=== PATIENT | female | born 1930 | race Caucasian/White ===

== ENCOUNTER → 2016-06-01 | Outpatient (CLI) | payer OTHER ==
[~2016-06-01] MED LIST: ACCUNEB SO1.25 MG/1 INH; ASPIRIN EC81 M1 PO; AZOR 5-20 MG T1 EACH PO; B-50 COMPLEX1 EAC1 PO; BIOTIN10000 MC1 PO; BIOTIN5 M1 PO; BYSTOLIC 5 MG5 M1 PO; BYSTOLIC10 MG PO; CALCIUM 600 +1 EAC9 PO; CALCIUM PO; CHLORTHALIDONE25 MG PO; CIPRO250 M1 PO; COLACE100 MG PO; COUMADIN 4 MG TA4 M1 PO; COZAAR 25 MG TA25 M1 PO; COZAAR 50 MG TA50 M1 PO; COZAAR 50 MG TA50 M2 PO; COZAAR 50 MG TA50 MG PO; DEMADEX20 MG PO; DOXYCYCLINE 10100 MG PO; ENOXAPARIN60 MG/0.1 SUBQ; FOSAMAX 70 MG T70 M1 PO; FOSAMAX 70 MG T70 MG PO; HYDROCHLOROTHIA25 M2 PO; IRON160 M1 PO; ISRADIPINE2.5 MG; ISRADIPINE5 MG PO; JANTOVEN2 MG PO; KLOR-CON 10 ER10 MEQ PO; LASIX 20 MG TAB20 MG PO; LASIX 40 MG TAB40 M1 PO; LEXAPRO 10 MG T10 M1 PO; LOVASTAT40 PO; MAG DELAY64 MG PO; MAGOX 400400 MG PO; MINOCIN50 MG PO; MUCINEX TA600 MG/TA2 PO; NORVASC 5 MG TAB5 MG PO; NORVASC5 MG PO; NOVOLOG100 UNIT/1; OMEGA-31000 MG PO; PAXIL10 MG; PEPCID20 MG PO; PLAVIX 75 MG TA75 M1 PO; POTASSIUM20 PO; PRADAXA150 MG PO; PRADAXA75 MG PO; PREDNISONE 10 M10 M1 PO; SENNA LAXATIVE8.6 MG PO; SUPER-D3+ SOFT1 EACH PO; TUCKS HEMORROID30 GM RECTAL; TUMS; TYLENOL325 MG PO; URSODIOL300 MG PO; VICODIN 5-3001 EACH PO; VICODIN PO; VITAMIN B-150 MG PO; VITAMIN D400 UNI1 PO; ZYRTEC10 MG PO; [UNRECOGNIZED DRUG - OTHER] PO; [UNRECOGNIZED DRUG - OTHER] PO; [UNRECOGNIZED DRUG - OTHER] RECTAL
== END ==
LOC: CAT 12:05
DX: R06.00 Dyspnea, unspecified (principal); J90 Pleural effusion, not elsewhere classified; J43.9 Emphysema, unspecified; R91.1 Solitary pulmonary nodule

== ENCOUNTER 2016-10-06 17:37 | Inpatient (IN) | payer OTHER ==
[~2016-10-06] VITALS: Ht 154.9 cm; Wt 32.2 kg
--- NOTE | ~2016-10-06 | S ---
[facility] [place] [address] SURGICAL PATH RPT PROCEDURE Name: REBEKAH CONWAY Room #: 242-P [facility] IN M.R.#: [id number] Admission: 10/06/16 Date of : 30 Discharge: 10/08/16 Report #: [id number] Path Case #: [id number] PATHOLOGY REPORT COLLECTION DATE: 10/06/2016 RECEIVED DATE: 10/10/2016 SUBMITTING PHYS: Dr. Nathaniel West OTHER PHYS: Dr. Chito Snell SPECIMEN(S) RECEIVED: A.Embolus right femoral artery * * * * * * * * * * * * FINAL DIAGNOSIS: Clotted blood (embolus), "right femoral artery": - Consistent with an embolus with clotted blood and blood elements. PATHOLOGIST: Travon Sanchez M.D. REPORT ELECTRONICALLY SIGNED BY: Travon Sanchez M.D. DATE/TIME: 10/11/2016 12:39 * * * * * * * * * * * * GROSS PATHOLOGY: The specimen is received in formalin labeled "Rebekah Conway, jose carlosus right femoral artery". Received is a moderate amount of red-de blood coagulum admixed with possible vascular tissue measuring 1.8 x 0.8 x 0.3 cm in aggregate dimensions. The specimen is filtered and entirely submitted in cassette A1. (CAA; 10/10/2016) CLINICAL HISTORY: Embolus right femoral artery INITIAL CPT CODE(S): A; 13940 Professional services performed by [facility] at [facility] [address], [place] [address] Technical services performed by [facility] at [address] [place] [id number]. [facility] [address] [place] [address] SURGICAL PATH RPT PROCEDURE Name: REBEKAH CONWAY Room #: 242-P [facility] IN M.R.#: [id number] Admission: 10/06/16 Date of : 30 Discharge: 10/08/16 Report #: [id number] Path Case #: [id number] [address] PHONE: [phone] DIRECTOR: Blaine Lai M.D. * * * END OF REPORT * * *
--- NOTE | ~2016-10-06 | O ---
[facility] [place] [address] OPERATIVE REPORT Name: SHOSHANA CONWAY Room #: 242-P [facility] IN M.R.#: [id number] Admission: 10/06/16 Attend Phys: Chito Arnold MD, Discharge: 10/08/16 Date of : 30 Report #: [id number] THIS REPORT FOR: //name// CC: Quinten Arnold DATE OF SERVICE: 10/06/2016. PREOPERATIVE DIAGNOSIS: Acute arterial ischemia, right lower extremity. POSTOPERATIVE DIAGNOSIS: Acute arterial ischemia, right lower extremity. OPERATION: Right femoral embolectomy and fasciotomy (four compartment). SURGEON: Nathaniel West M.D. BODY FORMER: Dcelan. ANESTHESIA: General. INDICATIONS: The patient is an 85-year-old with acute arterial insufficiency by history this occurred approximately 3 in the morning. We were consulted at approximately 6:30 in the afternoon in the evening. Arteriography by Dr. Obrien showed an embolus in the common femoral artery and then a total occlusion of superficial femoral and beyond. The patient has a history of previous stent placement and at last observation in 2016 superficial femoral artery stents were widely patent. FINDINGS AND TECHNIQUE: After general anesthesia was established, an incision was made in the right groin to expose the common deep and superficial femoral arteries, the femoral arteries were, the common femoral was intensively calcified and was challenged to find a spot to both control inflow and then a separate spot for the arteriotomy. In any event, 5000 units of heparin were given. The arteries were occluded. Transverse arteriotomy was made in common femoral artery and femoral embolectomy was performed, clot was treated from both the external iliac, common femoral systems and from the superficial femoral and beyond, I was able to pass [address] to the hilt and retrieve clot. It is difficult to pass the Haley down the deep femoral artery and so this was exposed separate layer and a separate arteriotomy was made to make sure that there was no clot in the deep femoral and this was widely patent. Both of the arteriotomies were closed with interrupted Prolene. Flow was reestablished. Good hemostasis was ascertained. [facility] [address] [place] [address] OPERATIVE REPORT Name: SHOSHANA CONWAY Room #: 242-P [facility] IN M.R.#: [id number] Admission: 10/06/16 Attend Phys: Chito Arnold MD, Discharge: 10/08/16 Date of : 30 Report #: [id number] We used the Doppler to interrogate the leg and were satisfactory with good distal flow, the calf; however, did seem tense and so therefore four compartment fasciotomy was made by making an incision over the fibula and then entering all of the components doing careful fasciotomy. Muscle in all of the compartments were pink and perfused and there was clearly swelling as to indicate necessity of the fasciotomy. When hemostasis was satisfactory, groin incisions were closed in layers and a Prevena dressing was applied, a moistened saline gauze was placed on the fasciotomy incision and this was wrapped with strong dorsalis pedis pulses palpable at the end of the operation. All counts reported as correct. <ELECTRONICALLY SIGNED> By: Nathaniel West MD 10/24/16 1325 0814 0900 Nathaniel West MD /nt
--- NOTE | ~2016-10-06 | HC ---
[facility] [place] [address] CONSULTATION Name: SHOSHANA CONWAY Theresa Room #: 242-P [facility] IN M.R.#: [id number] Admission: 10/06/16 Attend Phys: Chito Arnold MD, Discharge: 10/08/16 Date of : 30 Report #: [id number] THIS REPORT FOR: //name// CC: Quinten Arnold DATE OF SERVICE: 10/08/2016 CRITICAL CARE ICU RENAL CONSULT REASON FOR CONSULTATION: Acute kidney injury in this patient with multisystem organ failure. HISTORY OF PRESENT ILLNESS: This 85-year-old female has a significant history of diffuse atherosclerotic cardiovascular disease. She presented with acute onset of right calf pain. She was found to have complete occlusion of her right femoral artery and underwent femoral endarterectomy with fasciotomy. She has known longstanding peripheral arterial disease as well as stable coronary artery disease. She has been losing weight progressively and currently weighs approximately 85 pounds. Past medical history is remarkable for previous bilateral superficial femoral artery stents. MEDICATIONS ON ADMISSION: Include Fosamax, biotin, chlorthalidone, gabapentin, lovastatin, Bystolic, Demadex, potassium, Pradaxa. PAST MEDICAL HISTORY: Otherwise remarkable for paroxysmal atrial fibrillation and coronary artery disease. She has known carotid artery disease as well. She has dyslipidemia, hypertension, and COPD. 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 She does not smoke and does not consume alcohol. There is no history of substance abuse. Family history and review of systems are not obtainable at this time. ALLERGIES: Reported to STATINS, MACRODANTIN, SILVADENE, and SULFA. PHYSICAL EXAMINATION: GENERAL: Reveals a chronically ill, debilitated, acutely ill female who is poorly responsive and lethargic. VITAL SIGNS: Blood pressure 110/63, temperature , pulse 108, respirations . SKIN: Warm and dry. Extremities are cool. There is poor distal perfusion of all extremities. The extremities are mottled. HEENT: The head is normocephalic and atraumatic. The sclerae are white. The pharynx is benign. [facility] [address] [place] [address] CONSULTATION Name: SHOSHANA CONWAY Room #: 242-P [facility] IN ..#: [id number] Admission: 10/06/16 Attend Phys: Chito Arnold MD, Discharge: 10/08/16 Date of : 30 Report #: [id number] NECK: Supple. LUNGS: Yañez are grossly clear to percussion and auscultation. CARDIOVASCULAR: Reveals a regular rate and rhythm without rub. ABDOMEN: Soft and nontender. There is a Banuelos catheter in place draining no urine. NEUROLOGIC: Reveals the patient to be lethargic and poorly responsive. LABORATORY STUDIES: Available at this time include sodium 145, potassium 4.6, chloride 108, CO2 10, BUN 47, creatinine 2.1, calcium 7.4. White blood cell count 25,700, hemoglobin 7.6, hematocrit 26.9, platelet count 208,000. A pH 7.12, pCO2 of 21, pO2 165, lactate 13.08. ASSESSMENT: 1. Profound lactic acidosis with multisystem organ failure. The patient is anuric with a rapidly rising serum creatinine. Given her overall debilitated state and acute illness, I would recommend that we support her with aggressive medical intervention, but I do not feel that she is a candidate for dialysis at this time given her multiple comorbidities and advanced age as well as vascular disease. The is not present at this time. I will discuss further with Dr. Arnold. 2. Acute right femoral occlusion, status post endarterectomy. 3. Multisystem organ failure. 4. Leukocytosis. 5. Metabolic acidosis. PLAN: We will proceed with aggressive medical measures to include reformulation of intravenous fluids, transfusion and serial laboratory studies, I and O and daily weights. I will be happy to discuss matters further with the patient's regarding medical management and consideration of dialysis. Please see orders. Critical care time 45 minutes. <ELECTRONICALLY SIGNED> By: Nikhil Stahl MD 10/09/16 0750 1817 0107 Nikhil Stahl MD /nt
--- NOTE | ~2016-10-06 | H ---
[facility] [place] [address] HISTORY AND PHYSICAL Name: SHOSHANA CONWAY Theresa Room #: 242-P [facility] IN M.R.#: [id number] Admission: 10/06/16 Attend Phys: Chito Arnold MD, Discharge: 10/08/16 Date of : 30 Report #: [id number] THIS REPORT FOR: //name// CC: Quinten Arnold DATE OF SERVICE: 10/06/2016 HISTORY OF PRESENT ILLNESS: The patient is an 85-year-old female well known to myself who presents in our office with an acute onset of significant right calf pain. Subsequently, found to have a right femoral artery embolus and subsequently right femoral endarterectomy with fasciotomy. This was performed by Dr. West, longstanding peripheral vascular disease and stable coronary artery disease, failure to thrive. She stopped anticoagulation a couple of weeks prior due to some bleeding issues. With regards to leg she did not have any initial numbness and did have a motor strength still, although was cool, she has had prior bilateral SFA stents. She has had prior angioplasty of the right anterior tibial artery. There was occlusion throughout the distal right external iliac, common femoral and SFA. There were no EKG changes. HOME MEDICATIONS: Fosamax, Biotin, chlorthalidone, gabapentin, lovastatin 40, Bystolic 5, Demadex 5, potassium 10 and Pradaxa, she had been on Pradaxa 75 b.i.d. been stopped. 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 SOCIAL HISTORY: Nondrinker, nonsmoker. She is . 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 FAMILY HISTORY: Negative for premature coronary disease. ALLERGIES: CRESTOR, LIPITOR, MACRODANTIN, SILVADENE, SIMVASTATIN, AND SULFA. REVIEW OF SYSTEMS: Negative except for stated above and intermittent bleeding issues while on the prior Pradaxa, although they did not expound. PHYSICAL EXAMINATION: VITAL SIGNS: Pulse 70s, blood pressure 120/60. HEENT: Eyes reveal xanthelasmas. Pharynx is clear. NECK: Shows preserved upstrokes without JVD or bruits. LUNGS: Prolonged expiratory phase. [facility] [address] [place] [address] HISTORY AND PHYSICAL Name: SHOSHANA CONWAY Room #: 242-P [facility]#: [id number] Admission: 10/06/16 Attend Phys: Chito Arnold MD, Discharge: 10/08/16 Date of : 30 Report #: [id number] CARDIOVASCULAR: Distant heart tones, S1, S2. ABDOMEN: Soft. No HSM or abdominal bruit. EXTREMITIES: Reveal cool right lower extremity. I cannot palpate DP, PT and faintly on the femoral, the left foot is warm, but I also cannot palpate the distal pulses. SKIN: There are some chronic venous insufficiency noted, but no skin breakdown. NEUROLOGIC: Nonfocal. MUSCULOSKELETAL: Generalized arthritic changes. She is in a wheelchair, unable to walk due to the pain. ASSESSMENT: 1. Acute right lower extremity arterial occlusion embolic, suspect embolic event. 2. Longstanding peripheral vascular disease with multiple interventions, see above. 3. Stable coronary artery disease. 4. Chronic obstructive pulmonary disease. 5. Hypertension. 6. Paroxysmal atrial fibrillation. 7. Hypercholesterolemia. 8. Prior mesenteric ischemia with celiac, SMA occlusion, ROSY filling. RECOMMENDATIONS AND PLAN: We will admit for pain and to proceed to angiography with Dr. Obrien and may in fact need embolectomy by Dr. West. This had been discussed with the patient and her and they do elect to proceed, it is certainly a guarded condition here, this lady is elderly second fairly debilitated 72 pounds. <ELECTRONICALLY SIGNED> By: Chito Arnold MD, FACC 10/16/16 1544 0847 0927 Chito Arnold MD, FACC /nt
--- NOTE | ~2016-10-06 | EKG ---
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 : 1930 Requested By: Chito Arnold Order Number: [id number] MD: Jimmy Akbar Measurements Intervals Lindsay Rate: 120 P: WV: QRS: 121 QRSD: 106 T: 115 QT: 356 QTc: 503 Interpretive Statements Atrial fibrillation Ventricular premature complex Low-voltage QRS ST and T wave abnormality, consider ischemia Note previous ECGs available for comparison Electronically Signed On 10-08-2016 14:06:46 CDT by Jimmy Akbar [email or web address] <ELECTRONICALLY SIGNED> By: Jimmy Akbar MD, [facility] 10/08/16 1406 0 Jimmy Akbar MD, [facility] /EPI
--- NOTE | ~2016-10-06 | HC ---
[facility] [place] [address] CONSULTATION Name: SHOSHANA CONWAY Room #: 242-P ADM IN M.R.#: [id number] Admission: 10/06/16 Attend Phys: Chito Arnold MD, Discharge: Date of : 30 Report #: [id number] THIS REPORT FOR: //name// CC: Quinten Arnold DATE OF SERVICE: 10/07/2016 PRIMARY CARE PHYSICIAN: Dr. Quinten Snell. REFERRAL PHYSICIAN: Dr. Flores. REASON FOR REFERRAL: Postop respiratory failure. HISTORY OF PRESENT ILLNESS: The patient is an 85-year-old white female who was admitted yesterday with an acute arterial occlusion involving the right lower extremity. Overnight, she underwent arteriogram and subsequent right femoral artery embolectomy along with fasciotomy. Postoperatively, the patient was left on a ventilator. A pulmonary consultation was requested. Overnight, the patient did fairly well. She has developed a metabolic acidosis. CPAP earlier this morning was adequate and she was eventually extubated. 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 She also has coronary artery disease with PCI in the past, paroxysmal atrial fibrillation, COPD, chronic diastolic and systolic heart failure within the previous echocardiogram from 2014 showing an EF around 50-55%, moderate to severe mitral regurgitation, essential hypertension, pulmonary arterial hypertension. PAST SURGICAL HISTORY: As mentioned above including history of right humerus fracture, right leg fracture, hemorrhoidectomy, bunionectomy, hysterectomy, multiple skin cancer resection. ALLERGIES: MACROBID, PENICILLIN, SULFA, reactions not specified. MEDICATIONS: List are reviewed. FAMILY HISTORY: Remarkable for leukemia in mother who . Father had severe depression. SOCIAL HISTORY: The patient has smoked, but quit in 1983 after smoking more than 30 years, there is no history of alcohol use. 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 She is . [facility] [address] [place] [address] CONSULTATION Name: SHOSHANA CONWAY Room #: 242-P [facility] IN [facility].#: [id number] Admission: 10/06/16 Attend Phys: Chito Arnold MD, Discharge: Date of : 30 Report #: [id number] REVIEW OF SYSTEMS: As mentioned above, otherwise somewhat limited as patient is still drowsy post extubation. PHYSICAL EXAMINATION: VITAL SIGNS: Temperature is 96.8 degrees Fahrenheit, pulse is 73, respiratory rate 16, blood pressure 147/50 mmHg, saturation 98% on FIO2 35%. HEENT: Normocephalic, atraumatic. NECK: Supple, without any lymphadenopathy or thyromegaly. CHEST: Breath sounds are fair without any rales or wheezes. CARDIOVASCULAR: Distant heart sounds. No obvious murmurs or gallop. ABDOMEN: Soft, nontender. EXTREMITIES: Warm to touch involving the right lower extremity. Dressing placed over the right lower extremity. LABORATORY DATA: Portable chest x-ray was unremarkable. ET tube is in appropriate position. Electrolytes unremarkable except for creatinine of 1.3. BUN is 41, CO2 is 17. WBC is 19,300, hemoglobin 7.7. Arterial blood gas from yesterday evening revealed pH 7.30, pCO2 of 30, pO2 185. Albumin 2.6. IMPRESSION: 1. Acute hypoxic respiratory failure, expectant following surgery. The patient underwent a , which was adequate. She is now stable post-extubation. 2. History of chronic obstructive pulmonary disease, severity non-defined, continue bronchodilators. 3. Severe peripheral artery disease, acute right lower extremity femoral artery thrombosis, status post surgery as mentioned above. 4. Acute kidney injury/chronic kidney disease. The patient's creatinine has varied from 1.7-1.0 in the past from last year. 5. Metabolic acidosis due to limb ischemia, currently on bicarbonate drip, metabolic acidosis is improving. 6. Anemia with normal indices. 7. Protein calorie malnutrition, severe with an albumin 2.6. 8. Coronary artery disease. 9. Permanent atrial fibrillation. RECOMMENDATION: The patient is stable post extubation. We will keep saturation 90%. Wean O2. The patient is at risk for developing reperfusion lung injury. We will monitor closely. DVT and GI prophylaxis will be addressed. Chest physiotherapy as tolerated. Follow electrolytes closely along with renal function and metabolic acidosis. [address] [address] CONSULTATION Name: SHOSHANA CONWAY Room #: 242-P [facility] IN M.R.#: [id number] Admission: 10/06/16 Attend Phys: Chito Arnold MD, Discharge: Date of : 30 Report #: [id number] Thank you for this consultation. <ELECTRONICALLY SIGNED> By: Brandan Mcgee MD 10/08/16 1632 1352 56 Brandan Mcgee MD /nt
[2016-10-06 19:07] VITALS: BP 160/81
[2016-10-06 20:21] LABS: HEMATOCRIT 23.3 % (37.0-47.0); HEMOGLOBIN 7.3 gm/dL (12.0-15.0); MCH 28.7 pg (26.0-34.0); MCHC 31.5 g/dL (28.0-37.0); MCV 91.3 fL (80.0-100.0); RBC 2.55 mil/uL (4.20-5.00); RDW 17.2 % (10.5-14.5); WBC 6.7 thou/uL (4.0-11.0)
[2016-10-06 20:34] LABS: ALBUMIN 2.6 g/dL (3.4-5.0); CALCIUM 8.6 mg/dL (8.5-10.1); CREATININE 1.3 mg/dL (0.6-1.0); POTASSIUM 4.3 mmol/L (3.5-5.1); TOTAL BILIRUBIN 0.4 mg/dL (<0.1-1.0)
[2016-10-06 20:38] LABS: APTT 24.9 Seconds (24.5-32.8); INR 1.1; PROTIME 11.9 Seconds (9.3-11.4)
[2016-10-07] VITALS (59 sets, daily range): BP systolic 112–159; BP diastolic 33–108
[2016-10-07 01:07] LABS: ABG SAMPLE TYPE ARTERIAL; BE(vivo) -10.8 mmol/L (-2 to +3); HCO3 14.5 mmol/L (22.0-26.0); LACTATE 2.17 mmol/L (0.5-2.0); O2(CT) 12.1 mL/dL (15.0-23.0); O2Hb 97.7 % (92.0-98.0); PO2 185.5 mmHg (80.0-100.0); sO2 99.2 % (92.0-98.0); tCO2 15.4 mmol/L (24.0-30.0)
[2016-10-07 01:08] LABS: Pressure Support 8 cm H20; STICK SITE L.BRACHIAL; pH 7.302 (7.360-7.450)
[2016-10-07 01:09] LABS: VDS CPAP.RR23.VT380. cc
[2016-10-07 04:55] LABS: HEMATOCRIT 24.5 % (37.0-47.0); HEMOGLOBIN 7.7 gm/dL (12.0-15.0); MCH 28.6 pg (26.0-34.0); MCHC 31.2 g/dL (28.0-37.0); MCV 91.4 fL (80.0-100.0); RBC 2.68 mil/uL (4.20-5.00); WBC 19.3 thou/uL (4.0-11.0)
[2016-10-07 05:03] LABS: CALCIUM 8.2 mg/dL (8.5-10.1); CREATININE 1.3 mg/dL (0.6-1.0); POTASSIUM 4.6 mmol/L (3.5-5.1)
[2016-10-07 05:06] LABS: INR 1.1; PROTIME 11.7 Seconds (9.3-11.4)
[2016-10-07 05:51] LABS: ABG SAMPLE TYPE ARTERIAL; BE(vivo) -4.8 mmol/L (-2 to +3); HCO3 19.6 mmol/L (22.0-26.0); LACTATE 1.87 mmol/L (0.5-2.0); O2(CT) 11.1 mL/dL (15.0-23.0); O2Hb 97.9 % (92.0-98.0); PO2 164.4 mmHg (80.0-100.0); pH 7.391 (7.360-7.450); sO2 99.1 % (92.0-98.0); tCO2 20.6 mmol/L (24.0-30.0)
[2016-10-07 05:52] LABS: STICK SITE L.BRACHIAL; TIDAL VOLUME 350 ml
[2016-10-07 09:48] LABS: ABG SAMPLE TYPE ARTERIAL; BE(vivo) -6.1 mmol/L (-2 to +3); HCO3 18.5 mmol/L (22.0-26.0); O2(CT) 10.9 mL/dL (15.0-23.0); O2Hb 96.8 % (92.0-98.0); PCO2 32.6 mmHg (35.0-45.0); PO2 119.4 mmHg (80.0-100.0); Pressure Support 5 cm H20; STICK SITE R.BRACHIAL; pH 7.371 (7.360-7.450); sO2 98.3 % (92.0-98.0); tCO2 19.5 mmol/L (24.0-30.0)
[2016-10-08] VITALS (50 sets, daily range): BP systolic 49–155; BP diastolic 32–109
[2016-10-08 02:17] LABS: RDW 17.6 % (10.5-14.5)
[2016-10-08 02:18] LABS: HEMATOCRIT 22.7 % (37.0-47.0); MCH 27.5 pg (26.0-34.0); MCHC 29.5 g/dL (28.0-37.0); MCV 93.2 fL (80.0-100.0); RBC 2.44 mil/uL (4.20-5.00); WBC 28.4 thou/uL (4.0-11.0)
[2016-10-08 02:25] LABS: HEMOGLOBIN 6.7 gm/dL (12.0-15.0)
[2016-10-08 02:28] LABS: CALCIUM 7.4 mg/dL (8.5-10.1); CREATININE 2.1 mg/dL (0.6-1.0); POTASSIUM 4.6 mmol/L (3.5-5.1)
[2016-10-08 03:06] LABS: ABG SAMPLE TYPE ARTERIAL; BE(vivo) -20.9 mmol/L (-2 to +3); HCO3 6.6 mmol/L (22.0-26.0); O2(CT) 10.1 mL/dL (15.0-23.0); O2Hb 97.1 % (92.0-98.0); PO2 165.6 mmHg (80.0-100.0); sO2 98.6 % (92.0-98.0); tCO2 7.2 mmol/L (24.0-30.0)
[2016-10-08 03:07] LABS: Face Shield 60 %; LACTATE 13.08 mmol/L (0.5-2.0); PCO2 20.8 mmHg (35.0-45.0); STICK SITE L.BRACHIAL; pH 7.118 (7.360-7.450)
[2016-10-08 07:40] LABS: HEMATOCRIT 26.9 % (37.0-47.0); HEMOGLOBIN 7.6 gm/dL (12.0-15.0); MCH 28.1 pg (26.0-34.0); MCHC 28.2 g/dL (28.0-37.0); RBC 2.7 mil/uL (4.20-5.00); RDW 17.6 % (10.5-14.5); WBC 25.7 thou/uL (4.0-11.0)
[2016-10-08 07:43] LABS: MCV 99.6 fL (80.0-100.0)
[2016-10-08 11:36] LABS: HEMOGLOBIN 7.3 gm/dL (12.0-15.0); MCH 28.5 pg (26.0-34.0); MCHC 30.2 g/dL (28.0-37.0); MCV 94.2 fL (80.0-100.0); RBC 2.55 mil/uL (4.20-5.00)
[2016-10-08 14:08] LABS: HEMATOCRIT 27.8 % (37.0-47.0); HEMOGLOBIN 8.6 gm/dL (12.0-15.0)
== END 2016-10-08 17:06 | DRG 252 ==
LOC: ICU 17:37
PROVIDERS: Internal Medicine Cardiovascular Disease; Internal Medicine Nephrology; Internal Medicine Pulmonary Disease; Nuclear Medicine Nuclear Cardiology; Physician Assistant; Surgery Vascular Surgery
PROC: 04CK0ZZ Extirpation of Matter from Right Femoral Artery, Open Approach (ICD-10-PCS; principal; 2016-10-06)
PROC: 0KNS0ZZ Release Right Lower Leg Muscle, Open Approach (ICD-10-PCS; principal; 2016-10-06)
PROC: 5A09457 Assistance with Respiratory Ventilation, 24-96 Consecutive Hours, Continuous Positive Airway Pressure (ICD-10-PCS; 2016-10-06)
PROC: B41D1ZZ Fluoroscopy of Aorta and Bilateral Lower Extremity Arteries using Low Osmolar Contrast (ICD-10-PCS; 2016-10-06)
PROC: 5A1935Z Respiratory Ventilation, Less than 24 Consecutive Hours (ICD-10-PCS; 2016-10-07)
PROC: 0BH17EZ Insertion of Endotracheal Airway into Trachea, Via Natural or Artificial Opening (ICD-10-PCS; 2016-10-07)
PROC: 02H633Z Insertion of Infusion Device into Right Atrium, Percutaneous Approach (ICD-10-PCS; 2016-10-08)
PROC: B244ZZZ Ultrasonography of Right Heart (ICD-10-PCS; 2016-10-08)
PROC: 30243N1 Transfusion of Nonautologous Red Blood Cells into Central Vein, Percutaneous Approach (ICD-10-PCS; 2016-10-08)
DX: I74.3 Embolism and thrombosis of arteries of the lower extremities (principal); J96.01 Acute respiratory failure with hypoxia; E43 Unspecified severe protein-calorie malnutrition; I50.42 Chronic combined systolic (congestive) and diastolic (congestive) heart failure; E87.2 Acidosis; Z68.1 Body mass index [BMI] 19.9 or less, adult; N17.9 Acute kidney failure, unspecified; I13.0 Hypertensive heart and chronic kidney disease with heart failure and stage 1 through stage 4 chronic kidney disease, or unspecified chronic kidney disease; I73.9 Peripheral vascular disease, unspecified; I25.10 Atherosclerotic heart disease of native coronary artery without angina pectoris; Z66 Do not resuscitate; I48.0 Paroxysmal atrial fibrillation; J44.9 Chronic obstructive pulmonary disease, unspecified; I27.2 Other secondary pulmonary hypertension; D64.9 Anemia, unspecified; N18.9 Chronic kidney disease, unspecified; E78.5 Hyperlipidemia, unspecified; D72.829 Elevated white blood cell count, unspecified; Z51.5 Encounter for palliative care; E78.00 Pure hypercholesterolemia, unspecified; I95.9 Hypotension, unspecified; Z79.01 Long term (current) use of anticoagulants; Z95.5 Presence of coronary angioplasty implant and graft; Z87.81 Personal history of (healed) traumatic fracture; Z90.710 Acquired absence of both cervix and uterus; Z88.8 Allergy status to other drugs, medicaments and biological substances; Z88.2 Allergy status to sulfonamides; Z85.828 Personal history of other malignant neoplasm of skin; Z80.6 Family history of leukemia; Z81.8 Family history of other mental and behavioral disorders; Z87.891 Personal history of nicotine dependence
CPT/HCPCS: 10078; 27000; 47375; 50101; 50386; 50417; 50953; 51165; 51301; 51751; 56524; 56526; 56528; 57093; 62110; 62900; 85030; 85076